=== PATIENT | male | born 1985 | race Caucasian/White ===

== ENCOUNTER 2016-07-19 15:24 | Emergency (ER) | payer OTHER ==
[~2016-07-19] VITALS: Ht 188 cm; Wt 112.3 kg
[~2016-07-19 15:24] MED LIST: BENTYL10 MG PO; CIPRO500 MG PO; FLAGYL500 MG PO; FLEXERIL10 MG PO; NAPROSYN500 MG PO; NOHOMEMEDS; SUBOXONE 8 MG-1 EAC2 SL; TYLENOL EXTRA500 MG PO; ZOFRAN ODT4 MG PO
[2016-07-19] MEDS ORDERED: PERCOCET 5/31 TABLET PO (18:58)
[2016-07-19 19:28] VITALS: BP 118/85
== END 2016-07-19 19:27 | disposition home or self-care (01) ==
LOC: EME 15:24 → RME 15:24
DX: S42.022A Displaced fracture of shaft of left clavicle, initial encounter for closed fracture (principal); V47.5XXA Car driver injured in collision with fixed or stationary object in traffic accident, initial encounter; F17.200 Nicotine dependence, unspecified, uncomplicated
CPT/HCPCS: 73030; 99281; 99284; J3010

== ENCOUNTER 2016-07-21 12:51 | Emergency (ER) | payer OTHER ==
[~2016-07-21] VITALS: Ht 188 cm; Wt 111.3 kg
[~2016-07-21 12:51] MED LIST changes: +PERCOCET 5/31 TABLET PO
[2016-07-21] MEDS ORDERED: PERCOCET 5/31 TABLET PO (13:27)
[2016-07-21] MEDS ORDERED: MOTRIN800 MG PO (13:27)
[2016-07-21 13:56] VITALS: BP 137/90
== END 2016-07-21 13:56 | disposition home or self-care (01) ==
LOC: EME 12:51
DX: S42.002D Fracture of unspecified part of left clavicle, subsequent encounter for fracture with routine healing (principal); V49.9XXD Car occupant (driver) (passenger) injured in unspecified traffic accident, subsequent encounter; M25.512 Pain in left shoulder; R51 Headache; F17.200 Nicotine dependence, unspecified, uncomplicated
CPT/HCPCS: 99281; 99284; J1885

== ENCOUNTER 2016-07-30 11:56 | Day surgery (SDC) | payer OTHER ==
[~2016-07-30] VITALS: Ht 188 cm; Wt 109.0 kg
[~2016-07-30 11:56] MED LIST changes: +MOTRIN800 MG PO; +ZANTAC150 MG PO
[2016-07-30 12:20] VITALS: BP 129/88
[2016-07-30 18:34] VITALS: BP 141/97
[2016-07-30 19:19] VITALS: BP 141/93
[2016-07-30 23:35] VITALS: BP 163/83
[2016-07-31 03:58] VITALS: BP 139/81
[2016-07-31] MEDS ORDERED: OXYCODONE-APAP1 EACH PO (09:00)
[2016-07-31] MEDS ORDERED: ASPIRIN EC325 MG PO (09:00)
[2016-07-31] MEDS ORDERED: ENDOCET 5-3251 EACH PO (09:05)
[2016-07-31 11:16] VITALS: BP 134/80
== END 2016-07-31 12:11 | disposition home or self-care (01) ==
LOC: SDC 11:56 → 2SOUTH 16:22 → 3EAST 16:22
PROC: 0PSB04Z Reposition Left Clavicle with Internal Fixation Device, Open Approach (ICD-10-PCS; principal; 2016-07-30)
DX: S42.022A Displaced fracture of shaft of left clavicle, initial encounter for closed fracture (principal); V47.5XXA Car driver injured in collision with fixed or stationary object in traffic accident, initial encounter
CPT/HCPCS: 73000; 76000; C1713; G0378; J0131; J0330; J0690; J1100; J1170; J2250; J2270; J2405; J3010

== ENCOUNTER 2017-04-24 19:23 | Emergency (ER) | payer SELFPAY ==
[~2017-04-24] VITALS: Ht 177.8 cm; Wt 100.0 kg
[~2017-04-24 19:23] MED LIST changes: +ASPIRIN EC325 MG PO; +ENDOCET 5-3251 EACH PO; +OXYCODONE-APAP1 EACH PO
[2017-04-24 20:11] LABS: HEMATOCRIT 44.1 % (38.0-50.0); HEMOGLOBIN 15.2 G/DL (12.5-16.6); MCH 30.3 PG (29.0-34.0); MCHC 34.5 G/DL (30.0-36.0); PLATELET COUNT 238 K/uL (156-360); RBC DIS.WIDTH-CV 12.9 % (11.8-14.6); RBC DIS.WIDTH-SD 41.6 % (39-53); RED BLOOD COUNT 5.01 M/uL (4.00-5.50)
[2017-04-24 20:18] LABS: ALBUMIN 4.7 g/dL (3.2-4.8)
[2017-04-24 20:19] LABS: CHLORIDE 103 mEq/L (99-109); POTASSIUM 3.2 mEq/L (3.7-5.4); SODIUM 138 mEq/L (136-147)
[2017-04-24 20:21] LABS: GLUCOSE 97 mg/dL (70-99)
[2017-04-24 20:23] LABS: TOTAL BILIRUBIN 0.7 mg/dL (0.0-1.0)
[2017-04-24 20:24] LABS: SERUM ETHYL ALCOHOL < 10 mg/dL
[2017-04-24 20:25] LABS: ALKALINE PHOSPHATASE 55 IU/L (3-129); GFR ESTIMATE (CALCULATED) > 59 mL/min/ (58.99-99999)
[2017-04-24 20:26] LABS: AST (GOT) 14 IU/L (2-34)
[2017-04-24 20:27] LABS: UREA NITROGEN (BUN) 9 mg/dL (9-23)
[2017-04-24 20:28] LABS: SALICYLATE < 5.0 MG/DL (15-30)
[2017-04-24 20:29] LABS: ACETAMINOPHEN (TYLENOL) < 10 mcg/mL (10-30); ALT (GPT) 8 IU/L (3-49)
[2017-04-24 22:13] LABS: THC CANNABINOIDS PRESUMPTIVE POSITIVE (50 ng/mL)
[2017-04-24 22:14] LABS: AMPHETAMINE NEGATIVE (500 ng/mL); BARBITURATES NEGATIVE (200 ng/mL); BENZODIAZEPINES PRESUMPTIVE POSITIVE (150 ng/mL); BUPRENORPHINE NEGATIVE (10 ng/mL); COCAINE NEGATIVE (150 ng/mL); METHADONE NEGATIVE (200 ng/mL); METHAMPHETAMINE NEGATIVE (500 ng/mL); OPIATES (MORPHINE) NEGATIVE (100 ng/mL); OXYCODONE PRESUMPTIVE POSITIVE (100 ng/mL); PHENCYCLIDINE NEGATIVE (25 ng/mL); PROPOXYPHENE NEGATIVE (300 ng/mL); TRICYCLIC ANTIDEPRESSANTS NEGATIVE (300 ng/mL)
[2017-04-24 22:58] LABS: BENZODIAZEPINES, URINE SCREEN POSITIVE (200 ng/mL)
[2017-04-25 02:22] VITALS: BP 123/65
== END 2017-04-25 02:38 | disposition home or self-care (01) ==
LOC: EME 19:23
PROVIDERS: Emergency Medicine
DX: T42.4X1A Poisoning by benzodiazepines, accidental (unintentional), initial encounter (principal); F19.10 Other psychoactive substance abuse, uncomplicated; F11.20 Opioid dependence, uncomplicated; F90.9 Attention-deficit hyperactivity disorder, unspecified type; Z78.1 Physical restraint status; Z87.891 Personal history of nicotine dependence
CPT/HCPCS: 70450; 80053; 84999; 85027; 90839; 99281; 99285; G0480; J2060; J2310